=== PATIENT | female | born 1945 | race Caucasian/White ===

== ENCOUNTER 2016-10-09 18:00 | Inpatient (IN) | payer OTHER ==
[~2016-10-09] VITALS: Ht 154.9 cm; Wt 46.7 kg
[2016-10-09 18:07] VITALS: BP 133/84; PULSE 111; RESP 24; TEMP 98.9; O2SAT 87
[2016-10-09] MEDS ORDERED: IPRATROPIUM BROM 0.5 MG/2.5 ML VIAL.NEB (ATROVENT) IH ONE ×2 (18:15→19:30)
[2016-10-09] MEDS ORDERED: ALBUTEROL SULFATE 0.083% 2.5 MG/3 ML VIAL.NEB IH ONE ×2 (18:15→19:30)
[2016-10-09] MEDS ORDERED: methylPREDNISolone SOD SUCC/PF 62.5 MG/ML VIAL IVP ONE (18:15)
[2016-10-09] MEDS ORDERED: ASPIRIN 81 MG TAB.CHEW PO ONE (18:15)
[2016-10-09] MEDS ORDERED: MAGNESIUM SULFATE 1 GM in NS 50 ML IV ONE (18:15)
[2016-10-09] MEDS ORDERED: IPRATROPIUM BROM 0.5 MG/2.5 ML VIAL.NEB (ATROVENT) INH ONE (18:25)
[2016-10-09] MEDS ORDERED: ALBUTEROL SULFATE 0.083% 2.5 MG/3 ML VIAL.NEB INH ONE (18:25)
[2016-10-09] MEDS ORDERED: MAGNESIUM SULFATE 1 GM/2 ML VIAL ONE (18:42)
[2016-10-09 19:07] LABS: BASOPHILS # (AUTO) 0.1 K/uL (0.0-0.2); BASOPHILS % (AUTO) 0.4 % (0.0-2.0); CALCIUM 9.1 mg/dL (8.4-11.0); CREATININE 0.71 mg/dL (0.55-1.30); EOSINOPHILS # (AUTO) 0.1 K/uL (0.0-0.4); EOSINOPHILS % (AUTO) 0.9 % (0.0-4.0); HEMATOCRIT 50.6 % (36-48); HEMOGLOBIN 16.3 g/dL (12.0-16.0); LYMPHOCYTES # (AUTO) 2.4 K/uL (1.0-5.5); LYMPHOCYTES % (AUTO) 17.4 % (20.5-51.5); MEAN CORPUSCULAR HEMOGLOBIN 32 pg (27-31); MEAN CORPUSCULAR HGB CONC 32 % (32-36); MEAN CORPUSCULAR VOLUME 98 fL (79.0-98.0); MONOCYTES # (AUTO) 0.9 K/uL (0.0-1.0); MONOCYTES % (AUTO) 6.8 % (1.7-9.3); NEUTROPHILS # (AUTO) 10.2 K/uL (1.8-7.7); NEUTROPHILS % (AUTO) 74.5 % (40.0-70.0); PLATELET COUNT (AUTO) 296 K/uL (130-430); POTASSIUM 3.3 mmol/L (3.5-5.1); RED BLOOD CELL COUNT(AUTO) 5.16 MIL/uL (4.2-6.2); RED CELL DISTRIBUTION WIDTH 13.4 % (9.0-15.0); WHITE BLOOD COUNT (AUTO) 13.7 K/uL (4.8-10.8)
[2016-10-09 19:12] LABS: ALBUMIN 3.4 g/dL (3.4-4.8); TOTAL BILIRUBIN 0.6 mg/dL (0.0-1.0); TOTAL PROTEIN, SERUM 7.6 g/dL (6.4-8.3)
[2016-10-09 19:24] LABS: BLOOD GAS PH 7.391 (7.350-7.450)
[2016-10-09 19:25] LABS: ABG TOTAL HEMOGLOBIN 16.6 G/dL (12.0-18.0); BLOOD GAS COHb% 3.8 % (0.5-1.5); BLOOD O2Hb% 81.1 % (94.0-97.0)
[2016-10-09 19:26] LABS: BLOOD GAS HHB 14.8 % (0.0-6.0)
[2016-10-09] MEDS ORDERED: cefTRIAXone 1 GM IVPB PREMIX 50 ML IV ONE (19:30)
[2016-10-09 19:31] LABS: PROTHROMBIN TIME 11.1 SECS (9.5-12.5)
[2016-10-09] MEDS ORDERED: SPIRIVA INH (19:31)
[2016-10-09] MEDS ORDERED: GABA-531 PO (19:31)
[2016-10-09] MEDS ORDERED: MOXI400T PO (19:31)
[2016-10-09] MEDS ORDERED: MONT10TA25 PO (19:31)
[2016-10-09] MEDS ORDERED: SIMV40TA2 PO (19:31)
[2016-10-09] MEDS ORDERED: TOP25 PO (19:31)
[2016-10-09] MEDS ORDERED: HYDR-1189 PO (19:31)
[2016-10-09] MEDS ORDERED: DIPH25CA83 PO (19:31)
[2016-10-09] MEDS ORDERED: ALPR1TAB2 PO (19:31)
[2016-10-09] MEDS ORDERED: OMEP20CA10 PO (19:31)
[2016-10-09] MEDS ORDERED: ALBMDI INH (19:31)
[2016-10-09 20:28] VITALS: BP 104/49; PULSE 110; RESP 22; TEMP 98.4; O2SAT 78
[2016-10-09] MEDS ORDERED: IPRATROPIUM BROM 0.5 MG/2.5 ML VIAL.NEB (ATROVENT) INH PRN (20:45)
[2016-10-09] MEDS ORDERED: HYDROcodone/ACETAMIN 5-325 MG TAB (NORCO/ VICODIN) PO SCH (20:45)
[2016-10-09] MEDS ORDERED: ALBUTEROL SULFATE 0.083% 2.5 MG/3 ML VIAL.NEB INH PRN (20:45)
[2016-10-09 20:47] VITALS: BP 133/84; PULSE 111
[2016-10-09] MEDS: cefTRIAXone 1 GM IVPB PREMIX 50 ML IV SCH (21:00)
[2016-10-09] MEDS ORDERED: AZITHROMYCIN 500 MG/VIAL (ZITHROMAX) IV ONE (21:17)
[2016-10-09] MEDS: AZITHROMYCIN 500 MG in NS 250 ML IV SCH (21:29)
[2016-10-09] MEDS: methylPREDNISolone SOD SUCC/PF 62.5 MG/ML VIAL IVP SCH ×2 (22:00→22:16)
[2016-10-09] MEDS ORDERED: IOHEXOL 350 mgI/mL, 150 ML INFUS..BTL IV ONE (22:13)
[2016-10-09] MEDS: TOPIRAMATE 25 MG TABLET(TOPAMAX) PO SCH (22:33)
[2016-10-09] MEDS: SIMVASTATIN 40 MG TABLET PO SCH (22:33)
[2016-10-09] MEDS: GABAPENTIN 300 MG CAPSULE PO SCH (22:33)
[2016-10-09] MEDS: HYDROcodone/ACETAMIN 5-325 MG TAB (NORCO/ VICODIN) PO PRN (22:34)
[2016-10-09] MEDS: IPRATROPIUM BROM 0.5 MG/2.5 ML VIAL.NEB (ATROVENT) INH SCH (23:00)
[2016-10-09] MEDS: ALBUTEROL SULFATE 0.083% 2.5 MG/3 ML VIAL.NEB INH SCH (23:00)
[2016-10-10] VITALS (7 sets, daily range): BP systolic 100–131; BP diastolic 56–82; PULSE 64–115; RESP 16–20; TEMP 97.2–98.4; O2SAT 86–91
[2016-10-10] MEDS: methylPREDNISolone SOD SUCC/PF 62.5 MG/ML VIAL IVP SCH ×3 (05:19→21:38)
[2016-10-10] MEDS: IPRATROPIUM BROM 0.5 MG/2.5 ML VIAL.NEB (ATROVENT) INH SCH ×5 (08:17→23:00)
[2016-10-10] MEDS: ALBUTEROL SULFATE 0.083% 2.5 MG/3 ML VIAL.NEB INH SCH ×5 (08:18→23:00)
[2016-10-10] MEDS ORDERED: TIOTROPIUM BROMIDE 18 mcg/INHALATION (CAPSULE) INH SCH (09:00)
[2016-10-10] MEDS: TOPIRAMATE 25 MG TABLET(TOPAMAX) PO SCH ×2 (09:24→21:52)
[2016-10-10] MEDS: GABAPENTIN 300 MG CAPSULE PO SCH ×3 (09:24→21:52)
[2016-10-10] MEDS: OMEPRAZOLE 20 MG CAPSULE.DR (PriLOSEC) PO SCH (09:24)
[2016-10-10] MEDS: HYDROcodone/ACETAMIN 5-325 MG TAB (NORCO/ VICODIN) PO PRN ×2 (09:25→21:54)
[2016-10-10] MEDS ORDERED: guaiFENesin ER 600 MG TAB PO ONE (11:15)
[2016-10-10] MEDS: MONTELUKAST 10 MG TABLET PO SCH (17:43)
[2016-10-10] MEDS: cefTRIAXone 1 GM IVPB PREMIX 50 ML IV SCH (21:51)
[2016-10-10] MEDS: SIMVASTATIN 40 MG TABLET PO SCH (21:52)
[2016-10-10] MEDS: guaiFENesin ER 600 MG TAB PO SCH (21:52)
[2016-10-10] MEDS: AZITHROMYCIN 500 MG in NS 250 ML IV SCH (22:38)
[2016-10-11] VITALS: BP 112/62; PULSE 106; RESP 18; TEMP 98.9; O2SAT 87
[2016-10-11] MEDS: IPRATROPIUM BROM 0.5 MG/2.5 ML VIAL.NEB (ATROVENT) INH SCH ×6 (03:00→23:00)
[2016-10-11] MEDS: ALBUTEROL SULFATE 0.083% 2.5 MG/3 ML VIAL.NEB INH SCH ×6 (03:00→23:00)
[2016-10-11 04:17] VITALS: BP 120/73; PULSE 94; RESP 18; TEMP 97.9; O2SAT 87
[2016-10-11] MEDS: methylPREDNISolone SOD SUCC/PF 62.5 MG/ML VIAL IVP SCH ×3 (05:45→22:22)
[2016-10-11 07:19] LABS: BASOPHILS % (AUTO) 0.1 % (0.0-2.0); HEMATOCRIT 41.8 % (36-48); HEMOGLOBIN 13.7 g/dL (12.0-16.0); LYMPHOCYTES # (AUTO) 1.1 K/uL (1.0-5.5); LYMPHOCYTES % (AUTO) 5.6 % (20.5-51.5); MEAN CORPUSCULAR HEMOGLOBIN 32 pg (27-31); MEAN CORPUSCULAR HGB CONC 33 % (32-36); MEAN CORPUSCULAR VOLUME 99 fL (79.0-98.0); MONOCYTES # (AUTO) 0.3 K/uL (0.0-1.0); MONOCYTES % (AUTO) 1.8 % (1.7-9.3); NEUTROPHILS % (AUTO) 92.5 % (40.0-70.0); PLATELET COUNT (AUTO) 311 K/uL (130-430); RED BLOOD CELL COUNT(AUTO) 4.24 MIL/uL (4.2-6.2); RED CELL DISTRIBUTION WIDTH 13.4 % (9.0-15.0); WHITE BLOOD COUNT (AUTO) 19.4 K/uL (4.8-10.8)
[2016-10-11 07:21] LABS: CALCIUM 8.7 mg/dL (8.4-11.0); CREATININE 0.75 mg/dL (0.55-1.30); POTASSIUM 3.8 mmol/L (3.5-5.1)
[2016-10-11 07:48] VITALS: BP 128/70; PULSE 105; RESP 22; TEMP 97.9; O2SAT 85
[2016-10-11] MEDS: HYDROcodone/ACETAMIN 5-325 MG TAB (NORCO/ VICODIN) PO PRN (07:55)
[2016-10-11] MEDS: OMEPRAZOLE 20 MG CAPSULE.DR (PriLOSEC) PO SCH (08:15)
[2016-10-11] MEDS: GABAPENTIN 300 MG CAPSULE PO SCH ×3 (08:15→20:59)
[2016-10-11] MEDS: TOPIRAMATE 25 MG TABLET(TOPAMAX) PO SCH ×2 (08:15→20:59)
[2016-10-11] MEDS: guaiFENesin ER 600 MG TAB PO SCH ×2 (08:15→20:59)
[2016-10-11] MEDS ORDERED: POLYETHYLENE GLYCOL 3350, 17 GM/ POWD.PACK PO ONE (09:45)
[2016-10-11 12:14] VITALS: BP 116/57; PULSE 96; RESP 16; TEMP 96.8; O2SAT 92
[2016-10-11 15:28] VITALS: BP 123/66; PULSE 99; RESP 16; TEMP 97; O2SAT 91
[2016-10-11 15:51] VITALS: Ht 154.9 cm; Wt 46.7 kg
[2016-10-11] MEDS: MONTELUKAST 10 MG TABLET PO SCH (17:38)
[2016-10-11] MEDS ORDERED: ALPRAZolam 0.25 MG TABLET PO PRN (19:15)
[2016-10-11 19:50] VITALS: BP 131/77; PULSE 111; RESP 24; TEMP 96.4; O2SAT 89
[2016-10-11] MEDS: cefTRIAXone 1 GM IVPB PREMIX 50 ML IV SCH (20:58)
[2016-10-11] MEDS: SIMVASTATIN 40 MG TABLET PO SCH (20:59)
[2016-10-11] MEDS: AZITHROMYCIN 500 MG in NS 250 ML IV SCH (22:11)
[2016-10-12] VITALS (7 sets, daily range): BP systolic 124–157; BP diastolic 67–95; PULSE 74–101; RESP 16–20; TEMP 97.5–98.6; O2SAT 89–93
[2016-10-12] MEDS: ALBUTEROL SULFATE 0.083% 2.5 MG/3 ML VIAL.NEB INH SCH ×4 (03:00→15:33)
[2016-10-12] MEDS: IPRATROPIUM BROM 0.5 MG/2.5 ML VIAL.NEB (ATROVENT) INH SCH ×4 (03:00→15:33)
[2016-10-12] MEDS: methylPREDNISolone SOD SUCC/PF 62.5 MG/ML VIAL IVP SCH ×2 (05:31→14:02)
[2016-10-12] MEDS: HYDROcodone/ACETAMIN 5-325 MG TAB (NORCO/ VICODIN) PO PRN ×2 (05:38→17:23)
[2016-10-12] MEDS ORDERED: POLYETHYLENE GLYCOL 3350, 17 GM/ POWD.PACK PO SCH (09:00)
[2016-10-12] MEDS: GABAPENTIN 300 MG CAPSULE PO SCH ×2 (09:58→14:02)
[2016-10-12] MEDS: TOPIRAMATE 25 MG TABLET(TOPAMAX) PO SCH (09:59)
[2016-10-12] MEDS: OMEPRAZOLE 20 MG CAPSULE.DR (PriLOSEC) PO SCH (09:59)
[2016-10-12] MEDS: guaiFENesin ER 600 MG TAB PO SCH (09:59)
[2016-10-12] MEDS: MONTELUKAST 10 MG TABLET PO SCH (17:22)
== END 2016-10-12 17:51 | DRG 871 ==
LOC: SED 18:00 → STU 19:43 → SMU 10-10 16:28
PROVIDERS: ADMIT Internal Medicine Hospice and Palliative Medicine; ATTEND Internal Medicine Hospice and Palliative Medicine
DX: A41.9 Sepsis, unspecified organism (principal); J96.21 Acute and chronic respiratory failure with hypoxia; J18.9 Pneumonia, unspecified organism; J44.1 Chronic obstructive pulmonary disease with (acute) exacerbation; K57.92 Diverticulitis of intestine, part unspecified, without perforation or abscess without bleeding; J44.0 Chronic obstructive pulmonary disease with (acute) lower respiratory infection; E87.6 Hypokalemia; F17.200 Nicotine dependence, unspecified, uncomplicated; M19.90 Unspecified osteoarthritis, unspecified site; E78.5 Hyperlipidemia, unspecified; Z99.81 Dependence on supplemental oxygen; Z90.710 Acquired absence of both cervix and uterus; Z98.51 Tubal ligation status; Z98.49 Cataract extraction status, unspecified eye; Z88.1 Allergy status to other antibiotic agents; Z88.8 Allergy status to other drugs, medicaments and biological substances; Z79.899 Other long term (current) drug therapy; Z90.10 Acquired absence of unspecified breast and nipple
CPT/HCPCS: 36415; 36600; 71010; 71275; 80048; 80053; 82550-TC; 82803-TC; 83605; 84484; 85025; 85379; 85610-TC; 85730-TC; 87040-TC; 93005; 94640; 94760; 96365; 96375; 97110-GP; 97116-GP; 97530-GP; 99285; J0456; J0696; J2930; J3475; J7050; Q9967

== ENCOUNTER 2017-07-14 09:56 | Inpatient (IN) | payer OTHER ==
[~2017-07-14] VITALS: Ht 157.5 cm; Wt 56.2 kg
[~2017-07-14 09:56] MED LIST: ALPR1TAB2 PO; FLO44 INH; FLUT1DIS5 INH; GABA-531 PO; HYDR-1189 PO; IPRA3AMP9 INH; MECL12.584 PO; MONT10TA25 PO; OMEP20CA10 PO; PRED20TA PO; SIMV40TA5 PO; SPIRIVA INH
[2017-07-14] MEDS ORDERED: NACL 0.9% 1,000 ML IV ONE ×2 (09:58→12:15)
[2017-07-14] MEDS ORDERED: IPRATROPIUM BROM 0.5 MG/2.5 ML VIAL.NEB (ATROVENT) IH ONE ×2 (10:00→11:00)
[2017-07-14] MEDS ORDERED: ASPIRIN 325 MG TABLET PO ONE (10:00)
[2017-07-14] MEDS ORDERED: MAGNESIUM SULFATE 1 GM in NS 50 ML IV ONE (10:00)
[2017-07-14] MEDS ORDERED: methylPREDNISolone SOD SUCC/PF 62.5 MG/ML VIAL IVP ONE (10:00)
[2017-07-14] MEDS ORDERED: ALBUTEROL SULFATE 0.083% 2.5 MG/3 ML VIAL.NEB IH ONE ×2 (10:00→11:00)
[2017-07-14 10:01] VITALS: BP_SYST 92
[2017-07-14] MEDS ORDERED: MAGNESIUM SULFATE 1 GM/2 ML VIAL ONE (10:10)
[2017-07-14] MEDS ORDERED: MORPHINE SULFATE 10 MG/ML VIAL IVP ONE (10:45)
[2017-07-14 10:59] LABS: BASOPHILS # (AUTO) 0.1 K/uL (0.0-0.2); BASOPHILS % (AUTO) 0.5 % (0.0-2.0); HEMATOCRIT 53.5 % (36-48); HEMOGLOBIN 16.9 g/dL (12.0-16.0); LYMPHOCYTES # (AUTO) 0.6 K/uL (1.0-5.5); LYMPHOCYTES % (AUTO) 5.1 % (20.5-51.5); MEAN CORPUSCULAR HEMOGLOBIN 32 pg (27-31); MEAN CORPUSCULAR HGB CONC 32 % (32-36); MEAN CORPUSCULAR VOLUME 100 fL (79.0-98.0); MONOCYTES # (AUTO) 0.3 K/uL (0.0-1.0); MONOCYTES % (AUTO) 2.9 % (1.7-9.3); NEUTROPHILS # (AUTO) 10.7 K/uL (1.8-7.7); NEUTROPHILS % (AUTO) 91.5 % (40.0-70.0); PLATELET COUNT (AUTO) 209 K/uL (130-430); RED BLOOD CELL COUNT(AUTO) 5.34 MIL/uL (4.2-6.2); RED CELL DISTRIBUTION WIDTH 14.6 % (9.0-15.0); WHITE BLOOD COUNT (AUTO) 11.7 K/uL (4.8-10.8)
[2017-07-14] MEDS ORDERED: FLUT1DIS5 INH (11:04)
[2017-07-14] MEDS ORDERED: ASPI-1063 PO (11:04)
[2017-07-14] MEDS ORDERED: WELSR150 PO (11:04)
[2017-07-14] MEDS ORDERED: FAMO20TA98 PO (11:04)
[2017-07-14] MEDS ORDERED: TOP25 PO (11:04)
[2017-07-14 11:10] LABS: CALCIUM 9.9 mg/dL (8.4-11.0); CREATININE 0.97 mg/dL (0.55-1.30); POTASSIUM 4.5 mmol/L (3.5-5.1)
[2017-07-14 11:14] LABS: ALBUMIN 2.9 g/dL (3.4-4.8)
[2017-07-14 11:16] LABS: INR 1.2 (0.8-1.2); PROTHROMBIN TIME 11.7 SECS (9.5-12.5)
[2017-07-14] MEDS ORDERED: cefTRIAXone 1 GM in D5W 50 ML IV ONE (11:30)
[2017-07-14] MEDS ORDERED: cefTRIAXone 1 GM VIAL ONE (11:37)
[2017-07-14 11:43] LABS: BILIRUBIN,URINE 1+ (NEGATIVE); BLOOD, URINE 2+ (NEGATIVE); CLARITY/URINE SL CLOUDY (CLEAR); COLOR,URINE YELLOW (YELLOW); GLUCOSE,URINE NEGATIVE (NEGATIVE); KETONES,URINE TRACE (NEGATIVE); LEUKOCYTE ESTERASE ,URINE NEGATIVE (NEGATIVE); NITRITE, URINE NEGATIVE (NEGATIVE); PH,URINE 5.5 (5.0-8.0); PROTEIN URINE 2+ (NEGATIVE)
[2017-07-14] MEDS ORDERED: ONDANSETRON HCL 4 MG/2 ML VIAL IVP PRN (12:00)
[2017-07-14 12:16] LABS: BACTERIA,URINE MODERATE /HPF (None Seen); MUCUS,URINE 1+ /LPF (None Seen)
[2017-07-14 12:22] VITALS: BP_SYST 107
[2017-07-14 12:41] LABS: FREE T4 (FREE THYROXINE) 0.8 ng/dL (0.6-1.6); PHOSPHORUS 4.1 mg/dL (2.7-4.5); THYROID STIMULATING HORMONE 0.74 uIu/mL (0.34-4.82)
[2017-07-14 14:47] VITALS: BP_SYST 107
[2017-07-14] MEDS: IPRATROPIUM/ALBUTEROL SULFATE 3 ML AMPUL.NEB INH SCH ×3 (15:00→23:00)
[2017-07-14] MEDS: NACL 0.9% 1,000 ML IV SCH (15:22)
[2017-07-14] MEDS: GABAPENTIN 300 MG CAPSULE PO SCH ×2 (15:23→21:20)
[2017-07-14] MEDS ORDERED: ENOXAPARIN SODIUM 40 MG/0.4 ML SYRINGE SUBCUT ONE (15:45)
[2017-07-14] MEDS: ACETAMINOPHEN 325 MG TABLET PO PRN (17:25)
[2017-07-14] MEDS: MONTELUKAST 10 MG TABLET PO SCH (17:25)
[2017-07-14] MEDS: BUDESONIDE 0.5 MG/2 ML AMPUL.NEB INH SCH (19:39)
[2017-07-14] MEDS ORDERED: methylPREDNISolone SOD SUCC 40 MG/ML VIAL IVP SCH (21:00)
[2017-07-14] MEDS ORDERED: PREDNISONE 20 MG TABLET PO SCH (21:00)
[2017-07-14] MEDS: methylPREDNISolone SOD SUCC/PF 62.5 MG/ML VIAL IVP SCH (21:20)
[2017-07-14] MEDS: buPROPion HCL 150 MG TABLET.SA PO SCH (21:21)
[2017-07-14] MEDS: FAMOTIDINE 20 MG TABLET PO SCH (21:21)
[2017-07-14] MEDS: SIMVASTATIN 40 MG TABLET PO SCH (21:21)
[2017-07-14] MEDS: TOPIRAMATE 25 MG TABLET(TOPAMAX) PO SCH (21:23)
[2017-07-14] MEDS: DOCUSATE SODIUM 100 MG CAPSULE PO SCH (21:23)
[2017-07-14] MEDS: METOPROLOL TARTRATE 25 MG TABLET PO SCH (21:23)
[2017-07-14 22:30] VITALS: BP_SYST 101
[2017-07-15] VITALS (16 sets, daily range): BP systolic 69–132
[2017-07-15] MEDS: IPRATROPIUM/ALBUTEROL SULFATE 3 ML AMPUL.NEB INH SCH ×6 (03:00→23:03)
[2017-07-15] MEDS: methylPREDNISolone SOD SUCC/PF 62.5 MG/ML VIAL IVP SCH ×3 (05:58→21:18)
[2017-07-15] MEDS: NACL 0.9% 1,000 ML IV SCH (05:58)
[2017-07-15 06:44] LABS: BASOPHILS % (AUTO) 0.4 % (0.0-2.0); HEMATOCRIT 46.1 % (36-48); HEMOGLOBIN 14.7 g/dL (12.0-16.0); LYMPHOCYTES # (AUTO) 0.3 K/uL (1.0-5.5); MEAN CORPUSCULAR HEMOGLOBIN 32 pg (27-31); MEAN CORPUSCULAR HGB CONC 32 % (32-36); MEAN CORPUSCULAR VOLUME 101 fL (79.0-98.0); MONOCYTES # (AUTO) 0.3 K/uL (0.0-1.0); MONOCYTES % (AUTO) 2.7 % (1.7-9.3); NEUTROPHILS # (AUTO) 10.2 K/uL (1.8-7.7); NEUTROPHILS % (AUTO) 93.9 % (40.0-70.0); PLATELET COUNT (AUTO) 196 K/uL (130-430); RED BLOOD CELL COUNT(AUTO) 4.57 MIL/uL (4.2-6.2); RED CELL DISTRIBUTION WIDTH 14.2 % (9.0-15.0); WHITE BLOOD COUNT (AUTO) 10.8 K/uL (4.8-10.8)
[2017-07-15 07:00] LABS: CALCIUM 8.6 mg/dL (8.4-11.0); CREATININE 0.73 mg/dL (0.55-1.30); POTASSIUM 4.3 mmol/L (3.5-5.1)
[2017-07-15] MEDS: BUDESONIDE 0.5 MG/2 ML AMPUL.NEB INH SCH ×2 (08:01→19:56)
[2017-07-15] MEDS: OMEPRAZOLE 20 MG CAPSULE.DR (PriLOSEC) PO SCH (09:10)
[2017-07-15] MEDS: TOPIRAMATE 25 MG TABLET(TOPAMAX) PO SCH ×2 (09:11→21:18)
[2017-07-15] MEDS: FAMOTIDINE 20 MG TABLET PO SCH ×2 (09:11→21:18)
[2017-07-15] MEDS: ASPIRIN 81 MG TABLET(ECOTRIN) PO SCH (09:11)
[2017-07-15] MEDS: buPROPion HCL 150 MG TABLET.SA PO SCH ×2 (09:11→21:18)
[2017-07-15] MEDS: DOCUSATE SODIUM 100 MG CAPSULE PO SCH ×2 (09:11→21:18)
[2017-07-15] MEDS: ENOXAPARIN SODIUM 40 MG/0.4 ML SYRINGE SUBCUT SCH (09:12)
[2017-07-15] MEDS: GABAPENTIN 300 MG CAPSULE PO SCH ×3 (09:17→21:18)
[2017-07-15] MEDS: MORPHINE 2 MG/ML INJ. SYRINGE IVP PRN ×2 (09:17→21:45)
[2017-07-15] MEDS ORDERED: FUROSEMIDE 20 MG/2 ML VIAL IVP ONE (10:00)
[2017-07-15 11:09] LABS: T4 (THYROXINE) 4.7 ug/dL (4.5-12.0)
[2017-07-15] MEDS: LISINOPRIL 10 MG TABLET (PRINIVIL) PO SCH (11:16)
[2017-07-15] MEDS: METOPROLOL TARTRATE 25 MG TABLET PO SCH ×2 (11:16→21:00)
[2017-07-15] MEDS ORDERED: NACL 0.9% 1,000 ML IV ONE (14:30)
[2017-07-15] MEDS: NOREPINEPHRINE BITARTRATE 4 MG in D5W 246 ML IV PRN (16:35)
[2017-07-15] MEDS: MONTELUKAST 10 MG TABLET PO SCH (18:08)
[2017-07-15] MEDS ORDERED: NACL 0.9% 1,000 ML IV SCH (19:34)
[2017-07-15] MEDS ORDERED: CEFEPIME 1 GM/VIAL (MAXIPIME) ONE (20:31)
[2017-07-15] MEDS ORDERED: CEFEPIME 1 GM in D5W 50 ML IV SCH (21:00)
[2017-07-15] MEDS: CEFEPIME 1 GM in D5W 50 ML IV SCH (21:18)
[2017-07-15] MEDS: SIMVASTATIN 40 MG TABLET PO SCH (21:19)
[2017-07-16] VITALS (20 sets, daily range): BP systolic 97–130
[2017-07-16] MEDS: IPRATROPIUM/ALBUTEROL SULFATE 3 ML AMPUL.NEB INH PRN (00:57)
[2017-07-16] MEDS: NOREPINEPHRINE BITARTRATE 4 MG in D5W 246 ML IV PRN (02:56)
[2017-07-16] MEDS: IPRATROPIUM/ALBUTEROL SULFATE 3 ML AMPUL.NEB INH SCH ×6 (04:19→23:27)
[2017-07-16] MEDS: methylPREDNISolone SOD SUCC/PF 62.5 MG/ML VIAL IVP SCH ×3 (06:12→22:28)
[2017-07-16 06:51] LABS: BASOPHILS # (AUTO) 0.1 K/uL (0.0-0.2); BASOPHILS % (AUTO) 1.2 % (0.0-2.0); HEMATOCRIT 45.2 % (36-48); HEMOGLOBIN 14.5 g/dL (12.0-16.0); LYMPHOCYTES # (AUTO) 0.3 K/uL (1.0-5.5); LYMPHOCYTES % (AUTO) 2.4 % (20.5-51.5); MEAN CORPUSCULAR HEMOGLOBIN 32 pg (27-31); MEAN CORPUSCULAR HGB CONC 32 % (32-36); MEAN CORPUSCULAR VOLUME 100 fL (79.0-98.0); MONOCYTES # (AUTO) 0.3 K/uL (0.0-1.0); MONOCYTES % (AUTO) 2.3 % (1.7-9.3); NEUTROPHILS # (AUTO) 11.2 K/uL (1.8-7.7); NEUTROPHILS % (AUTO) 94.1 % (40.0-70.0); PLATELET COUNT (AUTO) 219 K/uL (130-430); RED BLOOD CELL COUNT(AUTO) 4.54 MIL/uL (4.2-6.2); RED CELL DISTRIBUTION WIDTH 14.2 % (9.0-15.0); WHITE BLOOD COUNT (AUTO) 11.9 K/uL (4.8-10.8)
[2017-07-16] MEDS: BUDESONIDE 0.5 MG/2 ML AMPUL.NEB INH SCH ×2 (07:05→20:08)
[2017-07-16 07:26] LABS: CALCIUM 8.8 mg/dL (8.4-11.0); CREATININE 0.78 mg/dL (0.55-1.30); POTASSIUM 4.2 mmol/L (3.5-5.1)
[2017-07-16] MEDS: METOPROLOL TARTRATE 25 MG TABLET PO SCH ×2 (09:00→22:27)
[2017-07-16] MEDS: LISINOPRIL 10 MG TABLET (PRINIVIL) PO SCH (09:00)
[2017-07-16] MEDS: ASPIRIN 81 MG TABLET(ECOTRIN) PO SCH (09:14)
[2017-07-16] MEDS: DOCUSATE SODIUM 100 MG CAPSULE PO SCH ×2 (09:14→22:26)
[2017-07-16] MEDS: ENOXAPARIN SODIUM 40 MG/0.4 ML SYRINGE SUBCUT SCH (09:14)
[2017-07-16] MEDS: TOPIRAMATE 25 MG TABLET(TOPAMAX) PO SCH ×2 (09:14→22:26)
[2017-07-16] MEDS: OMEPRAZOLE 20 MG CAPSULE.DR (PriLOSEC) PO SCH (09:14)
[2017-07-16] MEDS: FAMOTIDINE 20 MG TABLET PO SCH ×2 (09:14→22:26)
[2017-07-16] MEDS: buPROPion HCL 150 MG TABLET.SA PO SCH ×2 (09:14→22:30)
[2017-07-16] MEDS: GABAPENTIN 300 MG CAPSULE PO SCH ×3 (09:14→22:26)
[2017-07-16] MEDS: CEFEPIME 1 GM in D5W 50 ML IV SCH ×2 (10:36→22:26)
[2017-07-16] MEDS: MONTELUKAST 10 MG TABLET PO SCH (17:45)
[2017-07-16] MEDS: SIMVASTATIN 40 MG TABLET PO SCH (22:27)
[2017-07-17] MEDS: IPRATROPIUM/ALBUTEROL SULFATE 3 ML AMPUL.NEB INH SCH ×6 (03:00→23:30)
[2017-07-17] MEDS: methylPREDNISolone SOD SUCC/PF 62.5 MG/ML VIAL IVP SCH ×3 (06:25→21:07)
[2017-07-17 06:59] LABS: HEMATOCRIT 42.5 % (36-48); MEAN CORPUSCULAR HEMOGLOBIN 33 pg (27-31); MEAN CORPUSCULAR HGB CONC 33 % (32-36); MEAN CORPUSCULAR VOLUME 99 fL (79.0-98.0); PLATELET COUNT (AUTO) 167 K/uL (130-430); RED CELL DISTRIBUTION WIDTH 14.2 % (9.0-15.0); WHITE BLOOD COUNT (AUTO) 10.2 K/uL (4.8-10.8)
[2017-07-17 07:00] LABS: CALCIUM 8.8 mg/dL (8.4-11.0); CREATININE 0.57 mg/dL (0.55-1.30); POTASSIUM 4.2 mmol/L (3.5-5.1)
[2017-07-17] MEDS: BUDESONIDE 0.5 MG/2 ML AMPUL.NEB INH SCH ×2 (07:58→20:30)
[2017-07-17 08:51] VITALS: BP_SYST 120
[2017-07-17 08:55] VITALS: BP_SYST 104
[2017-07-17] MEDS: CEFEPIME 1 GM in D5W 50 ML IV SCH ×2 (09:03→20:52)
[2017-07-17] MEDS: ENOXAPARIN SODIUM 40 MG/0.4 ML SYRINGE SUBCUT SCH (09:05)
[2017-07-17] MEDS: OMEPRAZOLE 20 MG CAPSULE.DR (PriLOSEC) PO SCH (09:06)
[2017-07-17] MEDS: GABAPENTIN 300 MG CAPSULE PO SCH ×3 (09:06→20:52)
[2017-07-17] MEDS: DOCUSATE SODIUM 100 MG CAPSULE PO SCH ×2 (09:06→20:53)
[2017-07-17] MEDS: TOPIRAMATE 25 MG TABLET(TOPAMAX) PO SCH ×2 (09:06→20:52)
[2017-07-17] MEDS: buPROPion HCL 150 MG TABLET.SA PO SCH ×2 (09:06→21:07)
[2017-07-17] MEDS: FAMOTIDINE 20 MG TABLET PO SCH ×2 (09:06→20:53)
[2017-07-17] MEDS: ASPIRIN 81 MG TABLET(ECOTRIN) PO SCH (09:06)
[2017-07-17] MEDS: LISINOPRIL 10 MG TABLET (PRINIVIL) PO SCH (09:07)
[2017-07-17] MEDS: METOPROLOL TARTRATE 25 MG TABLET PO SCH ×2 (09:08→20:53)
[2017-07-17] MEDS: ALPRAZolam 0.25 MG TABLET PO PRN (09:16)
[2017-07-17 09:47] LABS: ATYPICAL LYMPHOCYTES % 0 % (0-0); BAND % (MANUAL) 3 % (0-6); BASOPHILS % (MANUAL) 0 % (0-2); EOSINOPHILS % (MANUAL) 0 % (0-7); LYMPHOCYTES % (MANUAL) 10 % (20-46); MONOCYTES % (MANUAL) 4 % (0-11)
[2017-07-17 15:25] VITALS: BP_SYST 117
[2017-07-17 15:45] VITALS: BP_SYST 143
[2017-07-17] MEDS: MONTELUKAST 10 MG TABLET PO SCH (18:51)
[2017-07-17 20:00] VITALS: BP_SYST 119
[2017-07-17] MEDS: SIMVASTATIN 40 MG TABLET PO SCH (20:52)
[2017-07-18 00:04] VITALS: BP_SYST 152
[2017-07-18] MEDS: IPRATROPIUM/ALBUTEROL SULFATE 3 ML AMPUL.NEB INH SCH ×6 (03:05→23:12)
[2017-07-18] MEDS: methylPREDNISolone SOD SUCC/PF 62.5 MG/ML VIAL IVP SCH (05:35)
[2017-07-18] MEDS: BUDESONIDE 0.5 MG/2 ML AMPUL.NEB INH SCH ×2 (07:10→20:22)
[2017-07-18 08:13] VITALS: BP_SYST 144
[2017-07-18] MEDS: CEFEPIME 1 GM in D5W 50 ML IV SCH ×2 (08:42→22:55)
[2017-07-18] MEDS: buPROPion HCL 150 MG TABLET.SA PO SCH ×2 (08:42→22:43)
[2017-07-18] MEDS: DOCUSATE SODIUM 100 MG CAPSULE PO SCH ×2 (08:42→22:44)
[2017-07-18] MEDS: GABAPENTIN 300 MG CAPSULE PO SCH ×3 (08:42→22:41)
[2017-07-18] MEDS: FAMOTIDINE 20 MG TABLET PO SCH ×2 (08:42→22:41)
[2017-07-18] MEDS: TOPIRAMATE 25 MG TABLET(TOPAMAX) PO SCH ×2 (08:42→22:43)
[2017-07-18] MEDS: OMEPRAZOLE 20 MG CAPSULE.DR (PriLOSEC) PO SCH (08:42)
[2017-07-18] MEDS: ASPIRIN 81 MG TABLET(ECOTRIN) PO SCH (08:43)
[2017-07-18] MEDS: LISINOPRIL 10 MG TABLET (PRINIVIL) PO SCH (08:43)
[2017-07-18] MEDS: METOPROLOL TARTRATE 25 MG TABLET PO SCH ×2 (08:44→22:43)
[2017-07-18 12:41] VITALS: BP_SYST 133
[2017-07-18 14:23] LABS: HEMOGLOBIN A1C 6.5 % (4.8-5.6)
[2017-07-18] MEDS ORDERED: POLYETHYLENE GLYCOL 3350, 17 GM/ POWD.PACK PO SCH (16:30)
[2017-07-18 16:31] VITALS: BP_SYST 138
[2017-07-18] MEDS: MONTELUKAST 10 MG TABLET PO SCH (18:08)
[2017-07-18] MEDS: POLYETHYLENE GLYCOL 3350, 17 GM/ POWD.PACK PO PRN (18:47)
[2017-07-18 20:10] VITALS: BP_SYST 124
[2017-07-18] MEDS: SIMVASTATIN 40 MG TABLET PO SCH (22:43)
[2017-07-18] MEDS: methylPREDNISolone SOD SUCC 40 MG/ML VIAL IVP SCH (22:51)
[2017-07-18 23:39] VITALS: BP_SYST 127
[2017-07-19] MEDS: IPRATROPIUM/ALBUTEROL SULFATE 3 ML AMPUL.NEB INH SCH ×6 (03:05→23:00)
[2017-07-19 08:18] VITALS: BP_SYST 146
[2017-07-19] MEDS: BUDESONIDE 0.5 MG/2 ML AMPUL.NEB INH SCH ×2 (08:37→19:08)
[2017-07-19] MEDS: TOPIRAMATE 25 MG TABLET(TOPAMAX) PO SCH ×2 (09:00→21:09)
[2017-07-19] MEDS: ASPIRIN 81 MG TABLET(ECOTRIN) PO SCH (09:00)
[2017-07-19] MEDS: FAMOTIDINE 20 MG TABLET PO SCH ×2 (09:00→21:00)
[2017-07-19] MEDS: CEFEPIME 1 GM in D5W 50 ML IV SCH ×2 (09:00→21:06)
[2017-07-19] MEDS: DOCUSATE SODIUM 100 MG CAPSULE PO SCH ×2 (09:00→21:08)
[2017-07-19] MEDS: buPROPion HCL 150 MG TABLET.SA PO SCH ×2 (09:00→21:17)
[2017-07-19] MEDS: GABAPENTIN 300 MG CAPSULE PO SCH ×3 (09:00→21:09)
[2017-07-19] MEDS: methylPREDNISolone SOD SUCC 40 MG/ML VIAL IVP SCH ×2 (09:00→21:07)
[2017-07-19] MEDS: OMEPRAZOLE 20 MG CAPSULE.DR (PriLOSEC) PO SCH (09:00)
[2017-07-19] MEDS: METOPROLOL TARTRATE 25 MG TABLET PO SCH ×2 (09:01→21:09)
[2017-07-19] MEDS: LISINOPRIL 10 MG TABLET (PRINIVIL) PO SCH (09:02)
[2017-07-19 12:34] VITALS: BP_SYST 134
[2017-07-19 16:04] VITALS: BP_SYST 148
[2017-07-19] MEDS: MONTELUKAST 10 MG TABLET PO SCH (18:35)
[2017-07-19 20:00] VITALS: BP_SYST 133
[2017-07-19] MEDS ORDERED: PIPERACILLIN/TAZO 2.25G/DEX-IS 50 ML IV SCH (20:00)
[2017-07-19] MEDS: SIMVASTATIN 40 MG TABLET PO SCH (21:09)
[2017-07-19] MEDS: ALPRAZolam 0.25 MG TABLET PO PRN (21:17)
[2017-07-20 00:48] VITALS: BP_SYST 151
[2017-07-20] MEDS: IPRATROPIUM/ALBUTEROL SULFATE 3 ML AMPUL.NEB INH SCH ×5 (03:00→19:51)
[2017-07-20] MEDS: methylPREDNISolone SOD SUCC 40 MG/ML VIAL IVP SCH ×2 (05:25→14:37)
[2017-07-20] MEDS: BUDESONIDE 0.5 MG/2 ML AMPUL.NEB INH SCH ×2 (07:00→19:52)
[2017-07-20 07:25] LABS: BASOPHILS # (AUTO) 0.1 K/uL (0.0-0.2); BASOPHILS % (AUTO) 0.4 % (0.0-2.0); HEMATOCRIT 50.4 % (36-48); LYMPHOCYTES # (AUTO) 0.7 K/uL (1.0-5.5); LYMPHOCYTES % (AUTO) 5.1 % (20.5-51.5); MEAN CORPUSCULAR HEMOGLOBIN 33 pg (27-31); MEAN CORPUSCULAR HGB CONC 33 % (32-36); MEAN CORPUSCULAR VOLUME 98 fL (79.0-98.0); MONOCYTES # (AUTO) 0.5 K/uL (0.0-1.0); MONOCYTES % (AUTO) 3.5 % (1.7-9.3); NEUTROPHILS # (AUTO) 12.5 K/uL (1.8-7.7); PLATELET COUNT (AUTO) 237 K/uL (130-430); RED BLOOD CELL COUNT(AUTO) 5.13 MIL/uL (4.2-6.2); RED CELL DISTRIBUTION WIDTH 13.8 % (9.0-15.0); WHITE BLOOD COUNT (AUTO) 13.8 K/uL (4.8-10.8)
[2017-07-20 08:21] LABS: HEMOGLOBIN 16.6 g/dL (12.0-16.0)
[2017-07-20 08:26] VITALS: BP_SYST 135
[2017-07-20] MEDS: CEFEPIME 1 GM in D5W 50 ML IV SCH ×2 (09:29→21:06)
[2017-07-20] MEDS: OMEPRAZOLE 20 MG CAPSULE.DR (PriLOSEC) PO SCH (09:30)
[2017-07-20] MEDS: FAMOTIDINE 20 MG TABLET PO SCH ×2 (09:30→21:13)
[2017-07-20] MEDS: ASPIRIN 81 MG TABLET(ECOTRIN) PO SCH (09:30)
[2017-07-20] MEDS: GABAPENTIN 300 MG CAPSULE PO SCH ×3 (09:30→21:12)
[2017-07-20] MEDS: DOCUSATE SODIUM 100 MG CAPSULE PO SCH ×2 (09:30→21:12)
[2017-07-20] MEDS: TOPIRAMATE 25 MG TABLET(TOPAMAX) PO SCH ×2 (09:30→21:13)
[2017-07-20] MEDS: LISINOPRIL 10 MG TABLET (PRINIVIL) PO SCH (09:32)
[2017-07-20] MEDS: METOPROLOL TARTRATE 25 MG TABLET PO SCH ×2 (09:37→21:19)
[2017-07-20] MEDS: buPROPion HCL 150 MG TABLET.SA PO SCH ×2 (09:40→21:22)
[2017-07-20 10:53] VITALS: BP_SYST 135
[2017-07-20] MEDS ORDERED: BARIUM SULFATE 135 ML SUSP.RECON (E-Z-HD) PO ONE (12:53)
[2017-07-20 14:09] VITALS: BP_SYST 122
[2017-07-20] MEDS: POLYETHYLENE GLYCOL 3350, 17 GM/ POWD.PACK PO PRN (14:36)
[2017-07-20 16:49] VITALS: BP_SYST 131
[2017-07-20] MEDS: MONTELUKAST 10 MG TABLET PO SCH (17:26)
[2017-07-20 19:55] VITALS: BP_SYST 132
[2017-07-20] MEDS: PREDNISONE 20 MG TABLET PO SCH (21:13)
[2017-07-20] MEDS: SIMVASTATIN 40 MG TABLET PO SCH (21:13)
[2017-07-21] MEDS: LACTULOSE 20 GM/30 ML UDC PO SCH ×5 (00:14→23:46)
[2017-07-21 00:24] VITALS: BP_SYST 120
[2017-07-21] MEDS: IPRATROPIUM/ALBUTEROL SULFATE 3 ML AMPUL.NEB INH SCH ×7 (00:37→23:10)
[2017-07-21] MEDS: MORPHINE 2 MG/ML INJ. SYRINGE IVP PRN (02:47)
[2017-07-21] MEDS: BUDESONIDE 0.5 MG/2 ML AMPUL.NEB INH SCH ×2 (08:24→19:14)
[2017-07-21] MEDS: OMEPRAZOLE 20 MG CAPSULE.DR (PriLOSEC) PO SCH (09:56)
[2017-07-21] MEDS: PREDNISONE 20 MG TABLET PO SCH ×2 (09:57→21:56)
[2017-07-21] MEDS: FAMOTIDINE 20 MG TABLET PO SCH ×2 (09:57→21:54)
[2017-07-21] MEDS: ASPIRIN 81 MG TABLET(ECOTRIN) PO SCH (09:57)
[2017-07-21] MEDS: LISINOPRIL 10 MG TABLET (PRINIVIL) PO SCH (09:58)
[2017-07-21] MEDS: GABAPENTIN 300 MG CAPSULE PO SCH ×3 (09:58→21:54)
[2017-07-21] MEDS: METOPROLOL TARTRATE 25 MG TABLET PO SCH ×2 (09:59→21:00)
[2017-07-21] MEDS: TOPIRAMATE 25 MG TABLET(TOPAMAX) PO SCH ×2 (09:59→21:56)
[2017-07-21] MEDS: DOCUSATE SODIUM 100 MG CAPSULE PO SCH ×2 (09:59→21:56)
[2017-07-21] MEDS: buPROPion HCL 150 MG TABLET.SA PO SCH ×2 (09:59→21:56)
[2017-07-21] MEDS: CEFEPIME 1 GM in D5W 50 ML IV SCH ×2 (10:00→21:58)
[2017-07-21] MEDS: IPRATROPIUM/ALBUTEROL SULFATE 3 ML AMPUL.NEB INH PRN (12:08)
[2017-07-21 12:54] VITALS: BP_SYST 122
[2017-07-21] MEDS ORDERED: NA PHOS,M-B/NA PHOS,DI-BA 118 ML (FLEET ENEMA) RC ONE (16:00)
[2017-07-21 17:03] VITALS: BP_SYST 119
[2017-07-21] MEDS: MONTELUKAST 10 MG TABLET PO SCH (17:35)
[2017-07-21] MEDS: ALPRAZolam 0.25 MG TABLET PO PRN (18:46)
[2017-07-21 19:50] VITALS: BP_SYST 106
[2017-07-21 20:20] VITALS: BP_SYST 93
[2017-07-21 20:57] VITALS: BP_SYST 93
[2017-07-21] MEDS: SIMVASTATIN 40 MG TABLET PO SCH (21:56)
[2017-07-21] MEDS ORDERED: VANCOMYCIN HCL 1000 MG/VIAL IV ONE (23:40)
[2017-07-21] MEDS: ACETAMINOPHEN 325 MG TABLET PO PRN (23:47)
[2017-07-22] VITALS (8 sets, daily range): BP systolic 75–106
[2017-07-22] MEDS ORDERED: VANCOMYCIN HCL 1 GM/NS PREMIX 250 ML IV ONE
[2017-07-22] MEDS: IPRATROPIUM/ALBUTEROL SULFATE 3 ML AMPUL.NEB INH SCH ×6 (03:38→23:08)
[2017-07-22] MEDS ORDERED: NACL 0.9% 1,000 ML IV ONE (05:00)
[2017-07-22] MEDS: LACTULOSE 20 GM/30 ML UDC PO SCH ×3 (06:00→17:25)
[2017-07-22 06:52] LABS: BILIRUBIN,URINE NEGATIVE (NEGATIVE); BLOOD, URINE NEGATIVE (NEGATIVE); CLARITY/URINE CLEAR (CLEAR); COLOR,URINE YELLOW (YELLOW); GLUCOSE,URINE NEGATIVE (NEGATIVE); KETONES,URINE NEGATIVE (NEGATIVE); LEUKOCYTE ESTERASE ,URINE NEGATIVE (NEGATIVE); NITRITE, URINE NEGATIVE (NEGATIVE); PH,URINE 5.5 (5.0-8.0); PROTEIN URINE NEGATIVE (NEGATIVE); UROBILINOGEN,URINE 0.2 (0.2-1.0)
[2017-07-22 08:22] LABS: BASOPHILS # (AUTO) 0.1 K/uL (0.0-0.2); BASOPHILS % (AUTO) 0.2 % (0.0-2.0); HEMATOCRIT 44.3 % (36-48); HEMOGLOBIN 14.7 g/dL (12.0-16.0); LYMPHOCYTES # (AUTO) 0.5 K/uL (1.0-5.5); LYMPHOCYTES % (AUTO) 1.7 % (20.5-51.5); MEAN CORPUSCULAR HEMOGLOBIN 32 pg (27-31); MEAN CORPUSCULAR HGB CONC 33 % (32-36); MEAN CORPUSCULAR VOLUME 97 fL (79.0-98.0); MONOCYTES # (AUTO) 0.2 K/uL (0.0-1.0); MONOCYTES % (AUTO) 0.6 % (1.7-9.3); NEUTROPHILS # (AUTO) 27.2 K/uL (1.8-7.7); PLATELET COUNT (AUTO) 231 K/uL (130-430); RED BLOOD CELL COUNT(AUTO) 4.56 MIL/uL (4.2-6.2); RED CELL DISTRIBUTION WIDTH 13.8 % (9.0-15.0)
[2017-07-22 08:49] LABS: CALCIUM 8.5 mg/dL (8.4-11.0); CREATININE 0.57 mg/dL (0.55-1.30); POTASSIUM 3.9 mmol/L (3.5-5.1)
[2017-07-22] MEDS: BUDESONIDE 0.5 MG/2 ML AMPUL.NEB INH SCH ×2 (08:50→19:17)
[2017-07-22] MEDS: LISINOPRIL 10 MG TABLET (PRINIVIL) PO SCH (09:00)
[2017-07-22] MEDS: PREDNISONE 20 MG TABLET PO SCH ×2 (10:00→20:57)
[2017-07-22] MEDS: FAMOTIDINE 20 MG TABLET PO SCH ×2 (10:00→20:56)
[2017-07-22] MEDS: GABAPENTIN 300 MG CAPSULE PO SCH ×3 (10:00→20:56)
[2017-07-22] MEDS: DOCUSATE SODIUM 100 MG CAPSULE PO SCH ×2 (10:00→20:57)
[2017-07-22] MEDS: ASPIRIN 81 MG TABLET(ECOTRIN) PO SCH (10:00)
[2017-07-22] MEDS: TOPIRAMATE 25 MG TABLET(TOPAMAX) PO SCH ×2 (10:01→20:56)
[2017-07-22] MEDS: buPROPion HCL 150 MG TABLET.SA PO SCH ×2 (10:01→20:57)
[2017-07-22] MEDS: OMEPRAZOLE 20 MG CAPSULE.DR (PriLOSEC) PO SCH (10:01)
[2017-07-22] MEDS: METOPROLOL TARTRATE 25 MG TABLET PO SCH ×2 (10:05→20:58)
[2017-07-22] MEDS: CEFEPIME 1 GM in D5W 50 ML IV SCH ×2 (10:05→20:55)
[2017-07-22 10:29] LABS: NEUTROPHILS % (AUTO) 97.5 % (40.0-70.0)
[2017-07-22] MEDS: MONTELUKAST 10 MG TABLET PO SCH (17:25)
[2017-07-22] MEDS: SIMVASTATIN 40 MG TABLET PO SCH (20:57)
[2017-07-22] MEDS: VANCOMYCIN HCL 1,000 MG in NS 250 ML IV SCH (23:02)
[2017-07-23 00:41] VITALS: BP_SYST 113
[2017-07-23] MEDS: IPRATROPIUM/ALBUTEROL SULFATE 3 ML AMPUL.NEB INH SCH ×6 (02:52→23:36)
[2017-07-23] MEDS: ALPRAZolam 0.25 MG TABLET PO PRN ×2 (03:38→23:48)
[2017-07-23 04:05] VITALS: BP_SYST 103
[2017-07-23] MEDS: LACTULOSE 20 GM/30 ML UDC PO SCH ×6 (05:50→23:49)
[2017-07-23 06:53] LABS: BASOPHILS % (AUTO) 0.1 % (0.0-2.0); EOSINOPHILS % (AUTO) 0.1 % (0.0-4.0); HEMATOCRIT 44.9 % (36-48); HEMOGLOBIN 14.7 g/dL (12.0-16.0); LYMPHOCYTES # (AUTO) 0.4 K/uL (1.0-5.5); MEAN CORPUSCULAR HEMOGLOBIN 32 pg (27-31); MEAN CORPUSCULAR HGB CONC 33 % (32-36); MEAN CORPUSCULAR VOLUME 99 fL (79.0-98.0); MONOCYTES # (AUTO) 0.1 K/uL (0.0-1.0); MONOCYTES % (AUTO) 0.6 % (1.7-9.3); NEUTROPHILS # (AUTO) 17.2 K/uL (1.8-7.7); NEUTROPHILS % (AUTO) 97.2 % (40.0-70.0); PLATELET COUNT (AUTO) 233 K/uL (130-430); RED BLOOD CELL COUNT(AUTO) 4.55 MIL/uL (4.2-6.2); RED CELL DISTRIBUTION WIDTH 14.2 % (9.0-15.0); WHITE BLOOD COUNT (AUTO) 17.7 K/uL (4.8-10.8)
[2017-07-23] MEDS: BUDESONIDE 0.5 MG/2 ML AMPUL.NEB INH SCH ×2 (07:00→20:11)
[2017-07-23 07:19] LABS: CALCIUM 8.7 mg/dL (8.4-11.0); CREATININE 0.46 mg/dL (0.55-1.30); POTASSIUM 3.8 mmol/L (3.5-5.1)
[2017-07-23] MEDS: GABAPENTIN 300 MG CAPSULE PO SCH ×3 (09:32→21:24)
[2017-07-23] MEDS: TOPIRAMATE 25 MG TABLET(TOPAMAX) PO SCH ×2 (09:32→21:24)
[2017-07-23] MEDS: ASPIRIN 81 MG TABLET(ECOTRIN) PO SCH (09:32)
[2017-07-23] MEDS: buPROPion HCL 150 MG TABLET.SA PO SCH ×2 (09:32→21:24)
[2017-07-23] MEDS: FAMOTIDINE 20 MG TABLET PO SCH ×2 (09:32→21:24)
[2017-07-23] MEDS: PREDNISONE 20 MG TABLET PO SCH ×2 (09:32→21:24)
[2017-07-23] MEDS: DOCUSATE SODIUM 100 MG CAPSULE PO SCH ×2 (09:32→21:24)
[2017-07-23] MEDS: OMEPRAZOLE 20 MG CAPSULE.DR (PriLOSEC) PO SCH (09:34)
[2017-07-23] MEDS: LISINOPRIL 10 MG TABLET (PRINIVIL) PO SCH (09:34)
[2017-07-23] MEDS: METOPROLOL TARTRATE 25 MG TABLET PO SCH ×2 (09:37→21:25)
[2017-07-23] MEDS: CEFEPIME 1 GM in D5W 50 ML IV SCH ×2 (09:38→21:23)
[2017-07-23] MEDS ORDERED: FUROSEMIDE 20 MG/2 ML VIAL IVP ONE (11:45)
[2017-07-23 12:34] VITALS: BP_SYST 105
[2017-07-23 14:23] VITALS: BP_SYST 105
[2017-07-23 16:33] VITALS: BP_SYST 106
[2017-07-23] MEDS: MONTELUKAST 10 MG TABLET PO SCH (18:49)
[2017-07-23 20:34] VITALS: BP_SYST 114
[2017-07-23] MEDS: FUROSEMIDE 20 MG/2 ML VIAL IVP SCH (21:24)
[2017-07-23] MEDS: SIMVASTATIN 40 MG TABLET PO SCH (21:24)
[2017-07-23] MEDS: VANCOMYCIN HCL 1,000 MG in NS 250 ML IV SCH (22:01)
[2017-07-24 00:10] VITALS: BP_SYST 120
[2017-07-24] MEDS: IPRATROPIUM/ALBUTEROL SULFATE 3 ML AMPUL.NEB INH SCH ×6 (03:00→23:25)
[2017-07-24] MEDS: LACTULOSE 20 GM/30 ML UDC PO SCH ×3 (06:00→17:28)
[2017-07-24] MEDS: BUDESONIDE 0.5 MG/2 ML AMPUL.NEB INH SCH ×2 (07:07→19:54)
[2017-07-24 07:22] LABS: EOSINOPHILS % (AUTO) 0.1 % (0.0-4.0); HEMATOCRIT 45.1 % (36-48); HEMOGLOBIN 14.9 g/dL (12.0-16.0); LYMPHOCYTES # (AUTO) 0.4 K/uL (1.0-5.5); LYMPHOCYTES % (AUTO) 2.3 % (20.5-51.5); MEAN CORPUSCULAR HEMOGLOBIN 33 pg (27-31); MEAN CORPUSCULAR HGB CONC 33 % (32-36); MEAN CORPUSCULAR VOLUME 98 fL (79.0-98.0); MONOCYTES # (AUTO) 0.1 K/uL (0.0-1.0); MONOCYTES % (AUTO) 0.7 % (1.7-9.3); NEUTROPHILS # (AUTO) 15.6 K/uL (1.8-7.7); NEUTROPHILS % (AUTO) 96.9 % (40.0-70.0); PLATELET COUNT (AUTO) 262 K/uL (130-430); RED CELL DISTRIBUTION WIDTH 14.2 % (9.0-15.0); WHITE BLOOD COUNT (AUTO) 16.1 K/uL (4.8-10.8)
[2017-07-24 07:38] LABS: CALCIUM 9.1 mg/dL (8.4-11.0); CREATININE 0.47 mg/dL (0.55-1.30); POTASSIUM 4.1 mmol/L (3.5-5.1)
[2017-07-24 08:00] VITALS: BP_SYST 127
[2017-07-24] MEDS: PREDNISONE 20 MG TABLET PO SCH ×2 (08:57→21:33)
[2017-07-24] MEDS: FAMOTIDINE 20 MG TABLET PO SCH ×2 (08:57→21:33)
[2017-07-24] MEDS: CEFEPIME 1 GM in D5W 50 ML IV SCH ×2 (08:57→21:31)
[2017-07-24] MEDS: GABAPENTIN 300 MG CAPSULE PO SCH ×3 (08:58→21:33)
[2017-07-24] MEDS: buPROPion HCL 150 MG TABLET.SA PO SCH ×2 (08:58→21:33)
[2017-07-24] MEDS: TOPIRAMATE 25 MG TABLET(TOPAMAX) PO SCH ×2 (08:58→21:33)
[2017-07-24] MEDS: DOCUSATE SODIUM 100 MG CAPSULE PO SCH ×2 (08:58→21:33)
[2017-07-24] MEDS: OMEPRAZOLE 20 MG CAPSULE.DR (PriLOSEC) PO SCH (08:58)
[2017-07-24] MEDS: ASPIRIN 81 MG TABLET(ECOTRIN) PO SCH (08:58)
[2017-07-24] MEDS: ACETAMINOPHEN 325 MG TABLET PO PRN (10:45)
[2017-07-24] MEDS: LISINOPRIL 10 MG TABLET (PRINIVIL) PO SCH (10:46)
[2017-07-24] MEDS: FUROSEMIDE 20 MG/2 ML VIAL IVP SCH ×2 (10:46→21:31)
[2017-07-24] MEDS: METOPROLOL TARTRATE 25 MG TABLET PO SCH ×2 (10:47→21:32)
[2017-07-24 12:15] VITALS: BP_SYST 130
[2017-07-24 16:31] VITALS: BP_SYST 83
[2017-07-24] MEDS: MONTELUKAST 10 MG TABLET PO SCH (17:30)
[2017-07-24 20:10] VITALS: BP_SYST 109
[2017-07-24] MEDS: SIMVASTATIN 40 MG TABLET PO SCH (21:32)
[2017-07-24] MEDS: VANCOMYCIN HCL 1,000 MG in NS 250 ML IV SCH (22:01)
[2017-07-25 01:06] VITALS: BP_SYST 90
[2017-07-25] MEDS: IPRATROPIUM/ALBUTEROL SULFATE 3 ML AMPUL.NEB INH PRN (01:12)
[2017-07-25] MEDS: IPRATROPIUM/ALBUTEROL SULFATE 3 ML AMPUL.NEB INH SCH ×4 (03:22→15:44)
[2017-07-25] MEDS: ACETAMINOPHEN 325 MG TABLET PO PRN (04:02)
[2017-07-25] MEDS: LACTULOSE 20 GM/30 ML UDC PO SCH ×3 (05:08→12:00)
[2017-07-25] MEDS ORDERED: HYDROcodone/ACETAMIN 5-325 MG TAB (NORCO/ VICODIN) PO ONE (06:00)
[2017-07-25 07:04] LABS: CALCIUM 8.9 mg/dL (8.4-11.0)
[2017-07-25 07:05] LABS: CREATININE 0.72 mg/dL (0.55-1.30)
[2017-07-25] MEDS: BUDESONIDE 0.5 MG/2 ML AMPUL.NEB INH SCH (08:06)
[2017-07-25 08:35] VITALS: BP_SYST 103
[2017-07-25] MEDS: buPROPion HCL 150 MG TABLET.SA PO SCH (08:39)
[2017-07-25] MEDS: GABAPENTIN 300 MG CAPSULE PO SCH ×2 (08:39→15:54)
[2017-07-25] MEDS: FAMOTIDINE 20 MG TABLET PO SCH (08:39)
[2017-07-25] MEDS: OMEPRAZOLE 20 MG CAPSULE.DR (PriLOSEC) PO SCH (08:39)
[2017-07-25] MEDS: ASPIRIN 81 MG TABLET(ECOTRIN) PO SCH (08:39)
[2017-07-25] MEDS: LISINOPRIL 10 MG TABLET (PRINIVIL) PO SCH (08:41)
[2017-07-25] MEDS: DOCUSATE SODIUM 100 MG CAPSULE PO SCH (08:42)
[2017-07-25] MEDS: METOPROLOL TARTRATE 25 MG TABLET PO SCH (08:42)
[2017-07-25] MEDS: FUROSEMIDE 20 MG/2 ML VIAL IVP SCH (08:43)
[2017-07-25] MEDS: CEFEPIME 1 GM in D5W 50 ML IV SCH (08:43)
[2017-07-25] MEDS: PREDNISONE 20 MG TABLET PO SCH (08:45)
[2017-07-25] MEDS: TOPIRAMATE 25 MG TABLET(TOPAMAX) PO SCH (08:45)
[2017-07-25 12:19] VITALS: BP_SYST 105
[2017-07-25 16:48] VITALS: BP_SYST 110
[2017-07-25 17:41] VITALS: BP_SYST 110
[2017-07-25] MEDS ORDERED: PREDNISONE 10 MG TABLET PO SCH (21:00)
[2017-07-26] MEDS ORDERED: FUROSEMIDE 20 MG TABLET PO SCH (09:00)
== END 2017-07-25 19:00 | disposition hospice, home (50) | DRG 177 ==
LOC: SED 09:56 → STU 11:58 → SIC 07-15 15:14 → STU 07-16 16:45
PROVIDERS: ADMIT Family Medicine; ATTEND Internal Medicine Hospice and Palliative Medicine
DX: J69.0 Pneumonitis due to inhalation of food and vomit (principal); I50.43 Acute on chronic combined systolic (congestive) and diastolic (congestive) heart failure; I21.A1 Myocardial infarction type 2; J96.21 Acute and chronic respiratory failure with hypoxia; I95.9 Hypotension, unspecified; G62.9 Polyneuropathy, unspecified; I27.20 Pulmonary hypertension, unspecified; I11.0 Hypertensive heart disease with heart failure; J96.22 Acute and chronic respiratory failure with hypercapnia; J44.1 Chronic obstructive pulmonary disease with (acute) exacerbation; M19.90 Unspecified osteoarthritis, unspecified site; G89.29 Other chronic pain; M54.5 Low back pain; F41.9 Anxiety disorder, unspecified; F32.9 Major depressive disorder, single episode, unspecified; E78.5 Hyperlipidemia, unspecified; K21.9 Gastro-esophageal reflux disease without esophagitis; F17.210 Nicotine dependence, cigarettes, uncomplicated; Z66 Do not resuscitate; Z51.5 Encounter for palliative care; Z88.8 Allergy status to other drugs, medicaments and biological substances; Z79.899 Other long term (current) drug therapy; Z79.82 Long term (current) use of aspirin; Z99.81 Dependence on supplemental oxygen; Z90.89 Acquired absence of other organs; Z98.51 Tubal ligation status; Z98.49 Cataract extraction status, unspecified eye
CPT/HCPCS: 36415; 36600; 71045; 74230; 80048; 80053; 80061; 81000-TC; 81003; 82150-TC; 82550-TC; 82803-TC; 83036; 83605; 83690-TC; 83735-TC; 83880; 84100-TC; 84436; 84439; 84443-TC; 84479; 84484; 85007; 85025; 85027; 85379; 85610-TC; 85730-TC; 87040-TC; 87081; 87086; 92611-GN; 93005; 93306; 94640; 94760; 96365; 96367; 96375; 97110-GP; 97116-GP; 97530-GP; 99285; J0692; J0696; J1030; J1650; J1940; J1956; J2270; J2543; J2930; J3370; J3475; J7030; J7050; J7060; J7512